=== PATIENT | female | born 1975 | race African-American/Black ===

== ENCOUNTER 2018-08-15 09:17 | Emergency (ER) | payer OTHER ==
[~2018-08-15] VITALS: Ht 162.6 cm; Wt 126.3 kg
[~2018-08-15 09:17] MED LIST: ALPR2TAB1 PO; ASPI-1718 PO; ATOR20TA40 PO; BENA10TA25 PO; BENA10TA81; HYDROCHLOROTHIAZIDE 25 MG TAB; METF-988 PO; METF500T PO; ORE25 PO; [UNRECOGNIZED DRUG - CODE] PO
[2018-08-15 09:27] VITALS: BP 143/96
--- NOTE | 2018-08-15 09:35 | NUR ---
43 Y FEMALE WITH C/O LEFT FOOT PAIN X 2 DAY, DENIES RECENT TRAUMA/INJURY. PT THEN TRIPPED YESTERDAY GOING UP STAIRS "BROKE BIG TOE NAIL." SWELLING NOTED TO LEFT GREAT TOE, TENDER TO PALPATION, +CSM, STRONG PALPABLE PEDAL PULSE, PATIENT IS AAOX4, VSS, BED DOWN, LOCKED, BED RAIL X1, ERMD AWARE AND NOTIFIED OF PATIENT STATUS. BLOOD GLUCOSE 83 HX: HTN, PRE-DIABETIC, A-FIB RX: AMLODIPINE, METOPROLOL, BUTRANS
--- NOTE | 2018-08-15 09:49 | NUR ---
Patient being evaluated by physician at bedside.
[2018-08-15] MEDS ORDERED: DEXAMETHASONE 10 MG/ML VIAL IM ONE (09:50)
[2018-08-15] MEDS ORDERED: KETOROLAC 60 MG/2 ML VIAL IM ONE (09:50)
[2018-08-15 11:02] VITALS: BP 154/78
--- NOTE | 2018-08-15 11:02 | NUR ---
Patient discharged with v/s stable. Written and verbal after care instructions given and explained. Patient alert, oriented and verbalized understanding of instructions. Ambulatory with steady gait. All questions addressed prior to discharge. ID band removed. Patient advised to follow up with PMD. Rx of voltaren xr given. Patient educated on indication of medication including possible reaction and side effects. Opportunity to ask questions provided and answered.
== END 2018-08-15 11:02 | disposition home or self-care (01) ==
LOC: MED 09:17
DX: M10.072 Idiopathic gout, left ankle and foot (principal); E11.9 Type 2 diabetes mellitus without complications; I10 Essential (primary) hypertension; E88.81 Metabolic syndrome and other insulin resistance; Z79.84 Long term (current) use of oral hypoglycemic drugs; Z79.82 Long term (current) use of aspirin; Z79.899 Other long term (current) drug therapy; Z88.0 Allergy status to penicillin; Z91.013 Allergy to seafood
CPT/HCPCS: 73630; 96372; 99283; J1100; J1885; Q0092

== ENCOUNTER 2018-11-06 16:13 | Emergency (ER) | payer OTHER ==
[~2018-11-06] VITALS: Ht 162.6 cm; Wt 133.4 kg
[2018-11-06 16:20] VITALS: BP 158/98
--- NOTE | 2018-11-06 16:27 | NUR ---
PATIENT AMBULATED TO BED 1 AT THIS TIME.
--- NOTE | 2018-11-06 16:35 | NUR ---
PATIENT PRESENTS TO ED WITH C/O NAUSEA, LT CHEST PAIN RADIATING TO NECK AND BACK SINCE LAST NIGHT. PATIENT STATES PAIN OF 5/10 AT THIS TIME. NO SOB AT THIS TIME. PATIENT POSITIONED FOR COMFORT; HOB ELEVATED; BEDRAILS UP X1; BED DOWN. ER MD MADE AWARE OF PT STATUS.
[2018-11-06 16:50] LABS: BASOPHILS % (AUTO) 0.5 % (0.0-2.0); EOSINOPHILS # (AUTO) 0.2 K/uL (0-0.4); EOSINOPHILS % (AUTO) 1.9 % (0.0-4.0); HEMATOCRIT 36.6 % (36-48); HEMOGLOBIN 11.8 g/dL (12.0-16.0); MEAN CORPUSCULAR HEMOGLOBIN 26 pg (27-31); MEAN CORPUSCULAR HGB CONC 32 g/dL (33-37); MEAN CORPUSCULAR VOLUME 81.4 fL (80-94); MONOCYTES # (AUTO) 0.7 K/uL (0.8-1.0); MONOCYTES % (AUTO) 8.3 % (1.7-9.3); NEUTROPHILS # (AUTO) 4.8 K/uL (1.8-7.7); NEUTROPHILS % (AUTO) 55.3 % (42.2-75.2); PLATELET COUNT (AUTO) 302 K/uL (140-450); RED BLOOD CELL COUNT(AUTO) 4.49 MIL/uL (4.20-5.40); RED CELL DISTRIBUTION WIDTH 15.8 % (11.6-13.7); WHITE BLOOD COUNT (AUTO) 8.7 K/uL (4.8-10.8)
--- NOTE | 2018-11-06 16:50 | NUR ---
UNABLE TO PRINT EKG DUE TO PROBLEMS PRINTING. DR. LOGAN SHOWN THE EKG ON THE MACHINE, APPROVED BY HIM. EKG TRANSFERRED.
[2018-11-06] MEDS ORDERED: KETOROLAC 60 MG/2 ML VIAL IM ONE (17:10)
[2018-11-06 17:11] LABS: ANION GAP 10.9 (8-16); CARBON DIOXIDE 27.1 mmol/L (21-32); CREATININE 1.3 mg/dL (0.6-1.3)
[2018-11-06 17:18] LABS: ALBUMIN 3.5 g/dL (3.4-5.0); TOTAL BILIRUBIN 0.2 mg/dL (0.0-1.0)
[2018-11-06 17:55] VITALS: BP 155/80
--- NOTE | 2018-11-06 17:56 | NUR ---
Patient discharged with v/s stable. Written and verbal after care instructions given and explained. Patient alert, oriented and verbalized understanding of instructions. Ambulatory with steady gait. All questions addressed prior to discharge. ID band removed. Patient advised to follow up with PMD. Rx of Motrin and [place] given. Patient educated on indication of medication including possible reaction and side effects. Opportunity to ask questions provided and answered.
== END 2018-11-06 17:56 | disposition home or self-care (01) ==
LOC: MED 16:13
DX: R07.89 Other chest pain (principal); R11.0 Nausea; E11.9 Type 2 diabetes mellitus without complications; I10 Essential (primary) hypertension; Z79.82 Long term (current) use of aspirin; Z79.84 Long term (current) use of oral hypoglycemic drugs; Z79.899 Other long term (current) drug therapy; Z88.0 Allergy status to penicillin; Z91.013 Allergy to seafood
CPT/HCPCS: 36415; 71045; 80053; 84484; 85025; 93005; 96372; 99284; J1885

== ENCOUNTER 2018-12-07 21:38 | Emergency (ER) | payer OTHER ==
[~2018-12-07] VITALS: Ht 162.6 cm; Wt 126.1 kg
[2018-12-07 21:40] VITALS: BP 137/74
--- NOTE | 2018-12-07 21:40 | NUR ---
TO BED # 11 AMBULATORY
--- NOTE | 2018-12-07 21:40 | NUR ---
43 Y/O FEMALE PRESENTS TO ED WTIH C/O REDNESS, EDEMA, ITCHING, AND PAIN TO LEFT SIDE OF NECK X3 DAYS. PT STATES BITTIN BU AN UNKNOWN INSECT WHEN PAIN STARTED. 6/10 PAIN. AFEBRILE WITH VSS. POSITOINED IN BED FOR COMFORT. ER MD AWARE. CONTINUE TO MONITOR.
--- NOTE | 2018-12-07 21:59 | NUR ---
Dr. Pickering evaluating patient at bedside.
[2018-12-07] MEDS ORDERED: SULFAMETH/TRIMETH DS 800/160MG 1 TAB PO ONE (22:05)
[2018-12-07 22:52] VITALS: BP 137/74
--- NOTE | 2018-12-07 22:52 | NUR ---
DISCHARGE PAPERS GIVEN TO PT. 0/10 PAIN. RX OF BACTRIM DS GIVEN. SIDE EFFECTS EXPLAINED. INSTRUCTED TO F/U WITH PCP AND WHEN TO RETURN TO ER. PT VERBALLIZED UNDERSTANDING OF DC INSTRUCTIONS. ALL QUESTIONS ANSWERED.
== END 2018-12-07 22:52 | disposition home or self-care (01) ==
LOC: MED 21:38
DX: S10.96XA Insect bite of unspecified part of neck, initial encounter (principal); L03.221 Cellulitis of neck; E11.9 Type 2 diabetes mellitus without complications; I10 Essential (primary) hypertension; Z79.82 Long term (current) use of aspirin; Z79.84 Long term (current) use of oral hypoglycemic drugs; Z79.899 Other long term (current) drug therapy; Z88.0 Allergy status to penicillin; Z91.013 Allergy to seafood; Z86.79 Personal history of other diseases of the circulatory system; Z87.09 Personal history of other diseases of the respiratory system; W57.XXXA Bitten or stung by nonvenomous insect and other nonvenomous arthropods, initial encounter; Y93.89 Activity, other specified; Y92.89 Other specified places as the place of occurrence of the external cause; Y99.8 Other external cause status
CPT/HCPCS: 99283

== ENCOUNTER 2019-03-25 11:39 | Emergency (ER) | payer OTHER ==
[~2019-03-25] VITALS: Ht 162.6 cm; Wt 131.5 kg
[2019-03-25 11:47] VITALS: BP 176/132
[2019-03-25] MEDS ORDERED: LIDOCAINE MPF 1% 10 MG/ML VIAL INJ ONE ×2 (12:05→12:25)
[2019-03-25 13:03] VITALS: BP 156/102
== END 2019-03-25 13:03 | disposition home or self-care (01) ==
LOC: MED 11:39
DX: M10.9 Gout, unspecified (principal); M62.838 Other muscle spasm; I10 Essential (primary) hypertension; E11.9 Type 2 diabetes mellitus without complications; I48.91 Unspecified atrial fibrillation; Z88.0 Allergy status to penicillin; Z79.84 Long term (current) use of oral hypoglycemic drugs; Z79.899 Other long term (current) drug therapy; Z79.82 Long term (current) use of aspirin
CPT/HCPCS: 20552; 99284; J2001; 99283

== ENCOUNTER 2023-08-24 14:14 | Emergency (ER) | payer OTHER ==
[~2023-08-24] VITALS: Ht 162.6 cm; Wt 122.5 kg
[~2023-08-24 14:14] MED LIST changes: -ASPI-1718 PO; +ASPI-1822 PO; +HYDR-4004 PO; +METF-1243 PO; +METF-346 PO; -METF-988 PO; -METF500T PO; -ORE25 PO
[2023-08-24 14:23] VITALS: BP 160/109; PULSE 85; RESP 18; TEMP 97.8; O2SAT 96
[2023-08-24 14:50] VITALS: TEMP 98.1
[2023-08-24 15:12] LABS: BASOPHILS % (AUTO) 0.3 % (0.0-2.0); EOSINOPHILS # (AUTO) 0.1 K/uL (0-0.4); EOSINOPHILS % (AUTO) 0.8 % (0.0-4.0); HEMATOCRIT 32.1 % (36-48); HEMOGLOBIN 10.3 g/dL (12.0-16.0); LYMPHOCYTES # (AUTO) 2.4 K/uL (2.5-16.5); LYMPHOCYTES % (AUTO) 25.6 % (20.5-51.1); MEAN CORPUSCULAR HEMOGLOBIN 23 pg (27-31); MEAN CORPUSCULAR HGB CONC 32 g/dL (33-37); MONOCYTES # (AUTO) 0.7 K/uL (0.8-1.0); NEUTROPHILS # (AUTO) 6.1 K/uL (1.8-7.7); NEUTROPHILS % (AUTO) 65.3 % (42.2-75.2); PLATELET COUNT (AUTO) 374 K/uL (140-450); RED BLOOD CELL COUNT(AUTO) 4.47 MIL/uL (4.20-5.40); RED CELL DISTRIBUTION WIDTH 18.7 % (11.6-13.7); WHITE BLOOD COUNT (AUTO) 9.4 K/uL (4.8-10.8)
[2023-08-24 15:24] LABS: ANION GAP 14.2 (8-16); CALCIUM 9.2 mg/dL (8.5-10.1); CARBON DIOXIDE 23.4 mmol/L (21-32); CREATININE 0.9 mg/dL (0.6-1.3); POTASSIUM 3.6 mmol/L (3.5-5.1)
[2023-08-24 15:31] LABS: INR 1.03 (0.8-1.2); PARTIAL THROMBOPLASTIN TIME 22.3 secs (22-35.6); PROTHROMBIN TIME 10.8 secs (10.8-13.4)
[2023-08-24] MEDS: ACETAMINOPHEN EXTRA STRENGTH 500 MG TAB PO ONE (15:32)
[2023-08-24] MEDS: KETOROLAC 30 MG/ML VIAL IVP ONE (15:40)
[2023-08-24 16:58] VITALS: BP 149/83; PULSE 73; RESP 19; O2SAT 96
== END 2023-08-24 16:58 | disposition home or self-care (01) ==
LOC: MED 14:14
DX: M94.0 Chondrocostal junction syndrome [Tietze] (principal); I11.9 Hypertensive heart disease without heart failure; E11.9 Type 2 diabetes mellitus without complications; Z88.0 Allergy status to penicillin; Z79.4 Long term (current) use of insulin; Z79.899 Other long term (current) drug therapy
CPT/HCPCS: 36415; 71045; 80048; 81025; 83880; 84484; 85025; 85610; 85730; 93005; 96374; 99285; J1885

== ENCOUNTER 2023-09-15 03:22 | Observation (INO) | payer OTHER ==
[~2023-09-15] VITALS: Ht 157.5 cm; Wt 122.5 kg
[2023-09-15 03:25] VITALS: BP 124/92; PULSE 89; RESP 18; TEMP 96.1; O2SAT 97
[2023-09-15 04:19] VITALS: O2SAT 100
[2023-09-15 04:58] LABS: BLOOD GAS PCO2 27.3 mmHg (35-45); BLOOD GAS PO2 74.7 mmHg (75-100)
[2023-09-15 04:59] LABS: BLOOD GAS BASE EXCESS -3.6 mmol/L (-2.0-2.0); BLOOD GAS O2 SAT% 95.1 % (92.0-98.5); FRACTIONATED INSPIRED OXYGEN 0.21 % (0.21-100.00)
[2023-09-15 05:52] LABS: BASOPHILS # (AUTO) 0.1 K/uL (0.00-0.22); BASOPHILS % (AUTO) 0.6 % (0.0-2.0); EOSINOPHILS # (AUTO) 0.1 K/uL (0-0.4); EOSINOPHILS % (AUTO) 1.1 % (0.0-4.0); HEMATOCRIT 35.4 % (36-48); HEMOGLOBIN 11.2 g/dL (12.0-16.0); LYMPHOCYTES # (AUTO) 3.2 K/uL (2.5-16.5); MEAN CORPUSCULAR HEMOGLOBIN 23 pg (27-31); MEAN CORPUSCULAR HGB CONC 32 g/dL (33-37); MEAN CORPUSCULAR VOLUME 72.4 fL (80-94); MONOCYTES % (AUTO) 7.6 % (1.7-9.3); NEUTROPHILS # (AUTO) 8.5 K/uL (1.8-7.7); NEUTROPHILS % (AUTO) 65.7 % (42.2-75.2); PLATELET COUNT (AUTO) 326 K/uL (140-450); RED BLOOD CELL COUNT(AUTO) 4.89 MIL/uL (4.20-5.40); WHITE BLOOD COUNT (AUTO) 12.9 K/uL (4.8-10.8)
[2023-09-15 06:12] LABS: CALCIUM 9.2 mg/dL (8.5-10.1); CARBON DIOXIDE 23.4 mmol/L (21-32); CREATININE 0.9 mg/dL (0.6-1.3); POTASSIUM 3.4 mmol/L (3.5-5.1)
[2023-09-15 06:18] LABS: ALBUMIN 3.7 g/dL (3.4-5.0); BILIRUBIN,DIRECT 0.1 mg/dL (0.0-0.3); TOTAL BILIRUBIN 0.2 mg/dL (0.0-1.0); TOTAL PROTEIN, SERUM 7.8 g/dL (6.4-8.2)
[2023-09-15 08:43] LABS: APPEARANCE,URINE CLEAR (CLEAR); BILIRUBIN,URINE 1+ (NEGATIVE); BLOOD, URINE NEGATIVE (NEGATIVE); COLOR,URINE YELLOW (YELLOW); LEUKOCYTE ESTERASE ,URINE NEGATIVE (NEGATIVE); NITRITE, URINE NEGATIVE (NEGATIVE); PROTEIN,URINE NEGATIVE (NEGATIVE); UGLUCOSE NEGATIVE (NEGATIVE); UROBILINOGEN,URINE 0.2 EU/dL (0.2 - 1)
[2023-09-15] MEDS ORDERED: HEPARIN PER PHARMACY MC PRN (09:35)
[2023-09-15 10:11] LABS: INR 1.03 (0.8-1.2); PARTIAL THROMBOPLASTIN TIME 22.5 secs (22-35.6); PROTHROMBIN TIME 10.8 secs (10.8-13.4)
[2023-09-15 10:29] LABS: ICTOTEST NEGATIVE (NEGATIVE)
[2023-09-15] MEDS ORDERED: HYDROcodone/APAP 5/325 MG 1 TAB TAB PO PRN (10:30)
[2023-09-15] MEDS ORDERED: KCL 20 MEQ IN 100 mL PREMIX 200 ML IV PRN (10:30)
[2023-09-15] MEDS ORDERED: MAGNESIUM OXIDE 400 MG TAB PO PRN (10:30)
[2023-09-15] MEDS ORDERED: BACL10TA4 PO (11:43)
[2023-09-15] MEDS ORDERED: ESCI5TAB PO (11:43)
[2023-09-15] MEDS ORDERED: FLONAS NS (11:43)
[2023-09-15] MEDS ORDERED: CETI1SOL12 PO (11:43)
[2023-09-15] MEDS ORDERED: LOSA100T52 PO (11:43)
[2023-09-15] MEDS: ACETAMINOPHEN 325 MG TAB PO PRN (14:09)
[2023-09-15] MEDS: hePARIN / DEXT 5% PREMIX 250 ML IV SCH (16:18)
[2023-09-15 20:00] VITALS: PULSE 81; RESP 18; O2SAT 98
[2023-09-15] MEDS ORDERED: INSULIN LISPRO SLIDING SCALE 100 UNITS/ML VIAL SUBQ PRN (20:30)
[2023-09-15] MEDS ORDERED: DEXTROSE 50% 50 ML SYR IVP PRN (20:30)
[2023-09-15] MEDS: TEMAZEPAM 15 MG CAP PO PRN (20:53)
[2023-09-15] MEDS: BLOOD GLUCOSE MONITORING 1 DEV DEV FS SCH (20:54)
[2023-09-15] MEDS: POTASSIUM CHLORIDE 10 MEQ TABER PO PRN (21:12)
[2023-09-16] VITALS (7 sets, daily range): BP systolic 109–138; BP diastolic 68–89; PULSE 77–108; RESP 18; TEMP 96.7–97.8; O2SAT 94–99
[2023-09-16 06:11] LABS: BASOPHILS # (AUTO) 0.1 K/uL (0.00-0.22); BASOPHILS % (AUTO) 0.7 % (0.0-2.0); EOSINOPHILS # (AUTO) 0.2 K/uL (0-0.4); HEMATOCRIT 35.1 % (36-48); HEMOGLOBIN 11.2 g/dL (12.0-16.0); LYMPHOCYTES # (AUTO) 3.1 K/uL (2.5-16.5); LYMPHOCYTES % (AUTO) 33.8 % (20.5-51.1); MEAN CORPUSCULAR HEMOGLOBIN 23 pg (27-31); MEAN CORPUSCULAR HGB CONC 32 g/dL (33-37); MEAN CORPUSCULAR VOLUME 72.9 fL (80-94); MONOCYTES # (AUTO) 0.9 K/uL (0.8-1.0); MONOCYTES % (AUTO) 9.6 % (1.7-9.3); NEUTROPHILS # (AUTO) 4.9 K/uL (1.8-7.7); NEUTROPHILS % (AUTO) 53.9 % (42.2-75.2); PLATELET COUNT (AUTO) 320 K/uL (140-450); RED BLOOD CELL COUNT(AUTO) 4.81 MIL/uL (4.20-5.40); RED CELL DISTRIBUTION WIDTH 19.5 % (11.6-13.7); WHITE BLOOD COUNT (AUTO) 9.1 K/uL (4.8-10.8)
[2023-09-16 06:28] LABS: ANION GAP 14.6 (8-16); CALCIUM 9.3 mg/dL (8.5-10.1); CARBON DIOXIDE 26.3 mmol/L (21-32); CREATININE 0.9 mg/dL (0.6-1.3); POTASSIUM 3.9 mmol/L (3.5-5.1)
[2023-09-16] MEDS: MEDS-TO-BEDS MC SCH (09:00)
[2023-09-16] MEDS: ONDANSETRON 4 MG/2 ML VIAL IVP PRN (20:11)
[2023-09-16] MEDS: MORPHINE SULFATE 4 MG/ML SYR IVP PRN (20:12)
[2023-09-17] VITALS (11 sets, daily range): BP systolic 123–144; BP diastolic 58–90; PULSE 65–86; RESP 18–20; TEMP 97.3–98.7; O2SAT 95–97
[2023-09-17 07:29] LABS: BASOPHILS # (AUTO) 0.1 K/uL (0.00-0.22); BASOPHILS % (AUTO) 0.7 % (0.0-2.0); EOSINOPHILS # (AUTO) 0.2 K/uL (0-0.4); EOSINOPHILS % (AUTO) 1.7 % (0.0-4.0); HEMATOCRIT 37.1 % (36-48); HEMOGLOBIN 11.6 g/dL (12.0-16.0); LYMPHOCYTES # (AUTO) 6.1 K/uL (2.5-16.5); LYMPHOCYTES % (AUTO) 49.4 % (20.5-51.1); MEAN CORPUSCULAR HEMOGLOBIN 23 pg (27-31); MEAN CORPUSCULAR HGB CONC 31 g/dL (33-37); MEAN CORPUSCULAR VOLUME 73.5 fL (80-94); MONOCYTES # (AUTO) 1.1 K/uL (0.8-1.0); MONOCYTES % (AUTO) 9.3 % (1.7-9.3); NEUTROPHILS # (AUTO) 4.8 K/uL (1.8-7.7); NEUTROPHILS % (AUTO) 38.9 % (42.2-75.2); PLATELET COUNT (AUTO) 388 K/uL (140-450); RED BLOOD CELL COUNT(AUTO) 5.05 MIL/uL (4.20-5.40); RED CELL DISTRIBUTION WIDTH 19.5 % (11.6-13.7); WHITE BLOOD COUNT (AUTO) 12.3 K/uL (4.8-10.8)
[2023-09-17 07:42] LABS: ANION GAP 14.7 (8-16); CALCIUM 9.2 mg/dL (8.5-10.1); CARBON DIOXIDE 26.2 mmol/L (21-32); POTASSIUM 3.9 mmol/L (3.5-5.1)
[2023-09-17] MEDS ORDERED: APIX5TAB4 PO (15:53)
[2023-09-17] MEDS: APIXABAN 2.5 MG TAB PO SCH (16:30)
== END 2023-09-17 19:18 | disposition home or self-care (01) ==
LOC: MED 03:22 → MTU 10:32
PROVIDERS: ADMIT Student in an Organized Health Care Education/Training Program; ATTEND Student in an Organized Health Care Education/Training Program
DX: I26.99 Other pulmonary embolism without acute cor pulmonale (principal); J96.01 Acute respiratory failure with hypoxia; I21.4 Non-ST elevation (NSTEMI) myocardial infarction; I24.89 Other forms of acute ischemic heart disease; E66.9 Obesity, unspecified; I10 Essential (primary) hypertension; E78.5 Hyperlipidemia, unspecified; I48.91 Unspecified atrial fibrillation; Z88.0 Allergy status to penicillin; Z79.899 Other long term (current) drug therapy
CPT/HCPCS: 36415; 36600; 71045; 71275; 80048; 80076; 81003; 82803; 82948; 83735; 83880; 84484; 85025; 85379; 85610; 85730; 87040; 87081; 87086; 93005; 93307; 93970; 96365; 96366; 96375; 96376; 99291; G0378; J1644; J1815; J2270; J2405; Q0092; Q9967; C8929